=== PATIENT | female | born 2000 | race African-American/Black ===

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

== ENCOUNTER → 2023-02-01 | Outpatient (CLI) | payer BC ==
[2023-02-01 11:57] LABS: Basophils # (auto) 0.1 10 ^3/uL (0-0.2); Basophils % (auto) 1.3 % (0.0-2.0); Eosinophils # (auto) 0 10 ^3/uL (0-0.8); Eosinophils % (auto) 0.9 % (0.0-7.0); Hematocrit 39.9 % (36.0-46.0); Hemoglobin 13.1 g/dL (12.2-16.2); Lymphocytes # (auto) 1.6 10 ^3/uL (0.4-5.4); Lymphocytes % (auto) 36.5 % (10.0-50.0); Mean Corpuscular Hemoglobin 27.8 pg (28.0-32.0); Mean Corpuscular Hgb Conc. 32.9 g/dL (32.0-36.0); Mean Corpuscular Volume 84.5 fL (80.0-100.0); Monocytes # (auto) 0.3 10 ^3/uL (0-1.3); Neutrophils # (auto) 2.4 10 ^3/uL (1.6-8.6); Neutrophils % (auto) 55.3 % (37.0-80.0); Red Blood Cells 4.72 10^6/uL (4.0-5.20); Red Cell Distribution Width 13.1 % (11.8-14.3); White Blood Cell 4.3 10^3/uL (4.4-10.8)
[2023-02-01 12:09] LABS: Urine Bacteria NONE SEEN /hpf (None Seen); Urine Blood Negative /uL (Negative); Urine Mucus FEW (None Seen); Urine Specific Gravity 1.022 (1.001-1.035); Urine WBC 3 /hpf (0 - 5)
[2023-02-01 12:51] LABS: Folate (Folic Acid) 12.42 ng/mL (5.38-24)
[2023-02-01 13:12] LABS: Calcium 9.2 mg/dL (8.5-10.1); Potassium 4.1 mmol/L (3.5-5.1)
[2023-02-01 13:15] LABS: Albumin 3.8 g/dL (3.4-5.0); BUN/Creatinine Ratio 10.3 (10.0-20.0)
[2023-02-01 13:18] LABS: Bilirubin, Total 1.2 mg/dL (0.2-1.0); Total Protein 7.8 g/dL (6.4-8.2)
[2023-02-01 16:59] LABS: Uric Acid 5.6 mg/dL (2.6-6.0)
== END | disposition home or self-care (01) ==
LOC: LAB 11:17
PROVIDERS: ATTEND Internal Medicine
DX: R68.89 Other general symptoms and signs (principal); R79.89 Other specified abnormal findings of blood chemistry; R73.09 Other abnormal glucose; E61.2 Magnesium deficiency; E55.9 Vitamin D deficiency, unspecified; R82.90 Unspecified abnormal findings in urine; D51.9 Vitamin B12 deficiency anemia, unspecified
CPT/HCPCS: 36415; 80053; 80061; 81001; 82306; 82607; 82746; 83036; 84443; 84550; 85025; 87086

== ENCOUNTER 2024-03-07 16:43 | Observation (INO) | payer OTHER, MEDICAID ==
[2024-03-07] MEDS ORDERED: PREN-96 PO (17:28)
== END 2024-03-07 17:41 | disposition home or self-care (01) ==
LOC: LDRP 16:43
PROVIDERS: ADMIT Obstetrics & Gynecology; ATTEND Obstetrics & Gynecology
DX: O62.9 Abnormality of forces of labor, unspecified (principal); Z3A.29 29 weeks gestation of pregnancy
CPT/HCPCS: 59025; 81002; 94760; G0378

== ENCOUNTER 2024-04-02 13:31 | Observation (INO) | payer OTHER, MEDICAID ==
[~2024-04-02 13:31] MED LIST: PREN-96 PO
== END 2024-04-02 15:35 | disposition home or self-care (01) ==
LOC: LDRP 13:31 → UNDOADMOB 13:31 → LDRP 13:48 → UNDODISOB 15:35
PROVIDERS: ADMIT Obstetrics & Gynecology; ATTEND Obstetrics & Gynecology
DX: O42.913 Preterm premature rupture of membranes, unspecified as to length of time between rupture and onset of labor, third trimester (principal); Z3A.33 33 weeks gestation of pregnancy
CPT/HCPCS: 59025; 76818; 81002; 94760; G0378

== ENCOUNTER 2024-04-06 17:31 | Observation (INO) | payer OTHER, MEDICAID ==
[~2024-04-06] VITALS: Ht 162.6 cm; Wt 68.5 kg
[2024-04-06 18:52] LABS: Basophils # (auto) 0 10 ^3/uL (0-0.2); Basophils % (auto) 0.5 % (0.0-2.0); Eosinophils # (auto) 0.1 10 ^3/uL (0-0.8); Eosinophils % (auto) 0.8 % (0.0-7.0); Hematocrit 29.2 % (36.0-46.0); Hemoglobin 9.7 g/dL (12.2-16.2); Lymphocytes # (auto) 1.2 10 ^3/uL (0.4-5.4); Lymphocytes % (auto) 14.8 % (10.0-50.0); Mean Corpuscular Hemoglobin 27.4 pg (28.0-32.0); Mean Corpuscular Hgb Conc. 33.3 g/dL (32.0-36.0); Mean Corpuscular Volume 82.3 fL (80.0-100.0); Monocytes # (auto) 0.5 10 ^3/uL (0-1.3); Monocytes % (auto) 6.8 % (0.0-12.0); Neutrophils # (auto) 6.2 10 ^3/uL (1.6-8.6); Neutrophils % (auto) 77.1 % (37.0-80.0); Nucleated Red Blood Cells % 0.1 %; Platelet Count (auto) 175 10^3/uL (140-450); Red Blood Cells 3.55 10^6/uL (4.0-5.20); Red Cell Distribution Width 13.1 % (11.8-14.3)
[2024-04-06 18:57] LABS: Urine Bacteria None Seen /hpf (None Seen)
[2024-04-06 19:07] LABS: INR 0.96 (0.9-1.15); Partial Thromboplastin Time 27.9 SEC (24.5-34.5); Prothrombin Time 10.2 sec (9.3-11.8)
[2024-04-06 19:08] LABS: Alanine Aminotransferase 11 U/L (7-40); Albumin 3.8 g/dL (3.2-4.8); Alkaline Phosphatase 94 U/L (46-116); Anion Gap 7 (5-15); Aspartate Aminotransferase 10 U/L (13-40); BUN/Creatinine Ratio 10.5 (10.0-20.0); Bilirubin, Total 0.3 mg/dL (0.2-1.0); Blood Urea Nitrogen 6 mg/dL (9-23); Calcium 8.9 mg/dL (8.7-10.4); Carbon Dioxide 21 mmol/L (20-30); Chloride 108 mmol/L (98-107); Glucose 105 mg/dL (74-106); Potassium 3.7 mmol/L (3.5-5.1); Sodium 136 mmol/L (136-145); Total Protein 6.5 g/dL (5.7-8.2); Uric Acid 5.1 mg/dL (3.1-7.8)
[2024-04-06 19:11] LABS: Urine Blood Negative /uL (Negative); Urine Clarity Turbid (Clear); Urine Color Light-Yellow (Yellow); Urine Protein, UAD TRACE (Negative); Urine Urobilinogen Normal (Negative); Urine WBC 22 /hpf (0 - 5)
[2024-04-06 19:17] LABS: Protein, Urine 22.2 mg/dL (0.0-11.9)
[2024-04-06 19:18] LABS: Amphetamine Screen, Urine Neg (NEGATIVE); Barbiturate Scree,Urine Neg (NEGATIVE); Benzodiazephine Screen, Urine Neg (NEGATIVE); Cocaine Screen, Urine Neg (NEGATIVE); Opiate Scree,Urine Neg (NEGATIVE)
[2024-04-06 19:19] LABS: Cannabinoid Screen, Urine Neg (NEGATIVE); Creatinine, Urine 112.65 mg/dL (30.0-125.0); Phencyclidine Screen, Urine Neg (NEGATIVE)
[2024-04-06] MEDS: ACETAMINOPHEN 325 MG TAB PO ONE (19:40)
== END 2024-04-06 20:47 | disposition home or self-care (01) ==
LOC: LDRP 17:31
PROVIDERS: ADMIT Obstetrics & Gynecology; ATTEND Obstetrics & Gynecology
DX: O36.5930 Maternal care for other known or suspected poor fetal growth, third trimester, not applicable or unspecified (principal); O26.893 Other specified pregnancy related conditions, third trimester; R51.9 Headache, unspecified; Z3A.33 33 weeks gestation of pregnancy; Z86.2 Personal history of diseases of the blood and blood-forming organs and certain disorders involving the immune mechanism; Z79.899 Other long term (current) drug therapy
CPT/HCPCS: 36415; 76818; 80053; 80307; 81001; 82570; 84156; 84550; 85025; 85610; 85730; G0378

== ENCOUNTER 2024-04-09 11:30 | Observation (INO) | payer OTHER, MEDICAID ==
[~2024-04-09] VITALS: Ht 162.6 cm; Wt 54.4 kg
[2024-04-09 13:46] LABS: Urine Bacteria FEW /hpf (None Seen); Urine Blood Negative /uL (Negative); Urine Clarity Turbid (Clear); Urine Color Yellow (Yellow); Urine Mucus FEW (None Seen); Urine Protein, UAD TRACE (Negative); Urine Specific Gravity 1.022 (1.001-1.035); Urine Urobilinogen 3 mg/dL (Negative); Urine WBC 16 /hpf (0 - 5); Urine pH 6.5 (5.0-9.0)
[2024-04-09 13:50] LABS: Protein, Urine 35.8 mg/dL (0.0-11.9)
[2024-04-09 13:52] LABS: Creatinine, Urine 190.69 mg/dL (30.0-125.0); Urine Protein/Creatinine Ratio 0.19
[2024-04-09 13:58] LABS: Protein, Urine < 6.0 mg/dL (0.0-11.9)
[2024-04-09 14:42] LABS: 24 Hr. Total Protein, Urine 242.99959 mg/24 Hr (<149.1); Urine Total Volume, 24 Hours 4050 mL
== END 2024-04-09 14:05 | disposition home or self-care (01) ==
LOC: UNDOADMOB 11:30 → LDRP 11:30
PROVIDERS: ADMIT Obstetrics & Gynecology; ATTEND Obstetrics & Gynecology
DX: O15.03 Eclampsia complicating pregnancy, third trimester (principal); Z3A.34 34 weeks gestation of pregnancy
CPT/HCPCS: 59025; 76818; 81001; 81002; 82570; 84156; G0378

== ENCOUNTER 2024-04-23 11:03 | Observation (INO) | payer OTHER, MEDICAID | END 2024-04-23 12:50 | disposition home or self-care (01) | LOC: LDRP 11:03 | PROVIDERS: ADMIT Obstetrics & Gynecology; ATTEND Obstetrics & Gynecology | DX: O36.51 Maternal care for known or suspected placental insufficiency (principal); Z3A.36 36 weeks gestation of pregnancy; Z79.899 Other long term (current) drug therapy | CPT/HCPCS: 59025; 76818; 81002; 94760; G0378 ==

== ENCOUNTER 2024-04-29 11:13 | Observation (INO) | payer OTHER, MEDICAID | END 2024-04-29 12:20 | disposition home or self-care (01) | LOC: LDRP 11:13 | PROVIDERS: ADMIT Obstetrics & Gynecology; ATTEND Obstetrics & Gynecology | DX: O36.5130 Maternal care for known or suspected placental insufficiency, third trimester, not applicable or unspecified (principal); Z3A.36 36 weeks gestation of pregnancy; Z79.899 Other long term (current) drug therapy | CPT/HCPCS: 59025; 76818; 81002; 94760; G0378 ==

== ENCOUNTER 2024-05-07 11:23 | Observation (INO) | payer OTHER, MEDICAID | END 2024-05-07 13:59 | disposition home or self-care (01) | LOC: LDRP 11:23 → UNDOADMOB 11:23 → LDRP 11:33 | PROVIDERS: ADMIT Obstetrics & Gynecology; ATTEND Obstetrics & Gynecology | DX: O36.5130 Maternal care for known or suspected placental insufficiency, third trimester, not applicable or unspecified (principal); Z3A.38 38 weeks gestation of pregnancy; Z79.899 Other long term (current) drug therapy; Z98.890 Other specified postprocedural states | CPT/HCPCS: 59025; 76818; 81002; 94760; G0378 ==

== ENCOUNTER 2024-05-14 11:06 | Observation (INO) | payer OTHER, MEDICAID ==
[~2024-05-14] VITALS: Ht 162.6 cm; Wt 59.0 kg
== END 2024-05-14 12:06 | disposition home or self-care (01) ==
LOC: UNDOADMOB 11:06 → LDRP 11:06 → UNDODISOB 12:06
PROVIDERS: ADMIT Obstetrics & Gynecology; ATTEND Obstetrics & Gynecology
DX: O36.51 Maternal care for known or suspected placental insufficiency (principal); Z3A.39 39 weeks gestation of pregnancy; Z79.899 Other long term (current) drug therapy; Z98.890 Other specified postprocedural states
CPT/HCPCS: 59025; 76818; 81002; 94760; G0378

== ENCOUNTER 2024-05-20 09:47 | Observation (INO) | payer OTHER, MEDICAID | END 2024-05-20 10:47 | disposition home or self-care (01) | LOC: LDRP 09:47 | PROVIDERS: ADMIT Obstetrics & Gynecology; ATTEND Obstetrics & Gynecology | DX: O36.5930 Maternal care for other known or suspected poor fetal growth, third trimester, not applicable or unspecified (principal); O26.893 Other specified pregnancy related conditions, third trimester; N89.8 Other specified noninflammatory disorders of vagina; Z3A.39 39 weeks gestation of pregnancy | CPT/HCPCS: 59025; 76818; 81002; 94760; G0378 ==

== ENCOUNTER 2024-05-21 13:46 | Inpatient (IN) | payer OTHER, MEDICAID ==
[~2024-05-21] VITALS: Ht 162.6 cm; Wt 72.6 kg
[2024-05-22] MEDS ORDERED: BUTORPHANOL TARTRATE 2 MG/1 ML VIAL IV PRN ×2 (22:30)
[2024-05-22] MEDS ORDERED: LIDOCAINE 2%HCL (LOCAL ANESTH.) INJ 20ML MDV IJ PRN (22:30)
[2024-05-22 23:13] LABS: Eosinophils # (auto) 0.1 10 ^3/uL (0-0.8); Hemoglobin 11.1 g/dL (12.2-16.2); Lymphocytes # (auto) 1.6 10 ^3/uL (0.4-5.4); Mean Corpuscular Hemoglobin 26.6 pg (28.0-32.0); Monocytes # (auto) 0.6 10 ^3/uL (0-1.3); Neutrophils # (auto) 7.4 10 ^3/uL (1.6-8.6); White Blood Cell 9.7 10^3/uL (4.4-10.8)
[2024-05-22 23:13] LABS: Urine Bacteria FEW /hpf (None Seen); Urine Blood Negative /uL (Negative); Urine Clarity Clear (Clear); Urine Protein, UAD Negative (Negative); Urine Specific Gravity 1.005 (1.001-1.035); Urine Urobilinogen Normal (Negative); Urine WBC 3 /hpf (0 - 5); Urine pH 6.5 (5.0-9.0)
[2024-05-22 23:15] LABS: Basophils # (auto) 0.1 10 ^3/uL (0-0.2); Basophils % (auto) 0.6 % (0.0-2.0); Eosinophils % (auto) 0.7 % (0.0-7.0); Hematocrit 33.4 % (36.0-46.0); Lymphocytes % (auto) 16.3 % (10.0-50.0); Mean Corpuscular Hgb Conc. 33.3 g/dL (32.0-36.0); Mean Corpuscular Volume 79.9 fL (80.0-100.0); Monocytes % (auto) 6.1 % (0.0-12.0); Neutrophils % (auto) 76.3 % (37.0-80.0); Platelet Count (auto) 197 10^3/uL (140-450); Red Blood Cells 4.18 10^6/uL (4.0-5.20); Red Cell Distribution Width 14.7 % (11.8-14.3)
[2024-05-22 23:17] LABS: Urine Color STRAW (Yellow)
[2024-05-22 23:23] LABS: INR 0.93 (0.9-1.15); Partial Thromboplastin Time 28.6 SEC (24.5-34.5); Prothrombin Time 9.9 sec (9.3-11.8)
[2024-05-22 23:25] LABS: Amphetamine Screen, Urine Neg (NEGATIVE); Barbiturate Scree,Urine Neg (NEGATIVE); Benzodiazephine Screen, Urine Neg (NEGATIVE); Cocaine Screen, Urine Neg (NEGATIVE); Opiate Scree,Urine Neg (NEGATIVE)
[2024-05-22 23:26] LABS: Cannabinoid Screen, Urine Neg (NEGATIVE); Phencyclidine Screen, Urine Neg (NEGATIVE)
[2024-05-22 23:28] LABS: Alanine Aminotransferase 17 U/L (7-40); Albumin 4.3 g/dL (3.2-4.8); Alkaline Phosphatase 142 U/L (46-116); Anion Gap 5 (5-15); Aspartate Aminotransferase 13 U/L (13-40); BUN/Creatinine Ratio 12.2 (10.0-20.0); Bilirubin, Total 0.5 mg/dL (0.2-1.0); Blood Urea Nitrogen 9 mg/dL (9-23); Calcium 9.9 mg/dL (8.7-10.4); Carbon Dioxide 22 mmol/L (20-31); Chloride 109 mmol/L (98-107); Glucose 83 mg/dL (74-106); Potassium 3.7 mmol/L (3.5-5.1); Sodium 136 mmol/L (136-145); Total Protein 7.5 g/dL (5.7-8.2)
[2024-05-23] MEDS ORDERED: NALBUPHINE HCL 10 MG/1ml INJECTION IV PRN (00:45)
[2024-05-23] MEDS: miSOPROStol 50 MCG per PRE-CUT 1/2 TAB PO PRN (00:51)
[2024-05-23] MEDS ORDERED: TERBUTALINE SULFATE 1 MG/ML 1ML VIAL SC PRN (06:15)
[2024-05-23] MEDS ORDERED: LACT. RINGERS/OXYTOCIN 20UNITS 1,000 ML IV SCH (06:15)
[2024-05-23] MEDS: LACTATED RINGER'S 1,000 ML IV SCH (07:34)
[2024-05-23] MEDS ORDERED: NALOXONE HCL 0.4 MG/ML VIAL IV ONE (08:15)
[2024-05-23] MEDS ORDERED: ePHEDrine SULFATE 50 MG/ML AMP IV ONE (08:15)
[2024-05-23] MEDS: fentaNYL CITRATE 100 MCG/2 ML VL IV ONE (09:01)
[2024-05-23] MEDS: ROPIVACAINE HCL 200 ML ONE (09:10)
[2024-05-23] MEDS ORDERED: ONDANSETRON ODT 4 MG TAB PO PRN (21:15)
[2024-05-23] MEDS: IBUPROFEN 600 MG TAB PO PRN (21:19)
[2024-05-23] MEDS: DOCUSATE SOD 100 MG CAP PO SCH (21:19)
[2024-05-23] MEDS: WITCH HAZEL-GLYCERIN PAD TOP PRN (22:05)
[2024-05-23] MEDS: PHISODERM TOP SOLN 240ML BTL TOP PRN (22:06)
[2024-05-23] MEDS: DERMOPLAST 60ML BOTTLE TOP PRN (22:06)
[2024-05-23 23:08] VITALS: BP 116/62; PULSE 101; RESP 18; TEMP 98.7
[2024-05-24] MEDS: LACT. RINGERS/OXYTOCIN 20UNITS 500 ML IV ONE ×2 (01:04→01:05)
[2024-05-24 03:00] VITALS: BP 115/58; PULSE 84; RESP 16; TEMP 98
[2024-05-24 07:30] VITALS: BP 109/69; PULSE 101; RESP 18; TEMP 98.4
[2024-05-24 07:53] LABS: Basophils # (auto) 0.1 10 ^3/uL (0-0.2); Basophils % (auto) 0.4 % (0.0-2.0); Eosinophils # (auto) 0.1 10 ^3/uL (0-0.8); Hematocrit 29.3 % (36.0-46.0); Nucleated Red Blood Cells % 0.1 %
[2024-05-24 07:55] LABS: Eosinophils % (auto) 0.4 % (0.0-7.0); Hemoglobin 9.4 g/dL (12.2-16.2); Lymphocytes # (auto) 1.4 10 ^3/uL (0.4-5.4); Lymphocytes % (auto) 9.9 % (10.0-50.0); Mean Corpuscular Hemoglobin 25.8 pg (28.0-32.0); Mean Corpuscular Hgb Conc. 32.1 g/dL (32.0-36.0); Mean Corpuscular Volume 80.4 fL (80.0-100.0); Monocytes % (auto) 6.9 % (0.0-12.0); Neutrophils # (auto) 11.6 10 ^3/uL (1.6-8.6); Neutrophils % (auto) 82.4 % (37.0-80.0); Platelet Count (auto) 159 10^3/uL (140-450); Red Blood Cells 3.64 10^6/uL (4.0-5.20); Red Cell Distribution Width 14.8 % (11.8-14.3); White Blood Cell 14.1 10^3/uL (4.4-10.8)
[2024-05-24 08:06] LABS: RPR Non Reactive (Non Reactive)
[2024-05-24 11:30] VITALS: BP 104/59; PULSE 110; RESP 18; TEMP 98.4; O2SAT 98
[2024-05-24] MEDS: ACETAMINOPHEN 325 MG TAB PO PRN (12:17)
[2024-05-24 15:00] VITALS: PULSE 88; RESP 18; TEMP 98.4; O2SAT 98
[2024-05-24 19:05] VITALS: BP 114/65; PULSE 96; RESP 14; TEMP 98.1; O2SAT 98
[2024-05-24 23:20] VITALS: BP 106/60; PULSE 105; RESP 16; TEMP 98; O2SAT 97
[2024-05-25 03:15] VITALS: BP 113/55; PULSE 92; RESP 14; TEMP 98.6; O2SAT 97
[2024-05-25 06:30] VITALS: BP 111/59; PULSE 92; RESP 18; TEMP 98.5; O2SAT 97
[2024-05-25 09:15] VITALS: BP 111/59; PULSE 92; RESP 16; TEMP 98.5; O2SAT 97
[2024-05-26 11:06] LABS: Treponema Pallidum Ab LC Non Reactive (Non Reactive)
== END 2024-05-25 10:13 | disposition home or self-care (01) | DRG 807 ==
LOC: EDSTATUS 13:50 → LDRP 05-22 22:18
PROVIDERS: ADMIT Obstetrics & Gynecology; ATTEND Obstetrics & Gynecology
PROC: 10D07Z6 Extraction of Products of Conception, Vacuum, Via Natural or Artificial Opening (ICD-10-PCS; principal; 2024-05-23)
PROC: 0KQM0ZZ Repair Perineum Muscle, Open Approach (ICD-10-PCS; 2024-05-23)
PROC: 3E0DXGC Introduction of Other Therapeutic Substance into Mouth and Pharynx, External Approach (ICD-10-PCS; 2024-05-23)
PROC: 3E033VJ Introduction of Other Hormone into Peripheral Vein, Percutaneous Approach (ICD-10-PCS; 2024-05-23)
PROC: 10907ZC Drainage of Amniotic Fluid, Therapeutic from Products of Conception, Via Natural or Artificial Opening (ICD-10-PCS; 2024-05-23)
PROC: 3E0R3BZ Introduction of Anesthetic Agent into Spinal Canal, Percutaneous Approach (ICD-10-PCS; 2024-05-23)
PROC: 00HU33Z Insertion of Infusion Device into Spinal Canal, Percutaneous Approach (ICD-10-PCS; 2024-05-23)
DX: O48.0 Post-term pregnancy (principal); Z37.0 Single live birth; O36.5930 Maternal care for other known or suspected poor fetal growth, third trimester, not applicable or unspecified; O70.1 Second degree perineal laceration during delivery; Z3A.40 40 weeks gestation of pregnancy
CPT/HCPCS: 36415; 59025; 59409; 62282; 80053; 80307; 81001; 85025; 85610; 85730; 86592; 86780; 86803; 86850; 86900; 86901; 94760; 94762; 96360; 96361; 96365; 96366; G0378; J2590